=== PATIENT | male | born 2000 | race Caucasian/White ===

== ENCOUNTER 2020-07-01 09:42 | Emergency (ER) | payer OTHER ==
[~2020-07-01 09:42] MED LIST: BENTYL10 MG PO; IBUPROFEN800 MG PO; MEDROL 4MG DOSEP4 MG PO; ONDANSETRON ODT4 MG PO; PEPCID AC20 MG PO; PROAIR HFA8.5 GM INH; ZITHROMAX500 MG PO; ZOFRAN4 MG PO; ZOFRAN8 MG PO
[2020-07-01] MEDS ORDERED: OMEPRAZOLE40 MG PO (10:27)
[2020-07-01] MEDS ORDERED: ONDANSETRON ODT4 MG PO (10:27)
== END 2020-07-01 10:33 | disposition home or self-care (01) ==
LOC: FER 09:42
DX: K29.00 Acute gastritis without bleeding (principal); F17.200 Nicotine dependence, unspecified, uncomplicated; Z88.0 Allergy status to penicillin; Z87.19 Personal history of other diseases of the digestive system
CPT/HCPCS: 93005

== ENCOUNTER 2020-07-03 12:16 | Emergency (ER) | payer OTHER ==
[~2020-07-03 12:16] MED LIST changes: +OMEPRAZOLE40 MG PO
[2020-07-03 13:00] LABS: BASOPHIL 0.9 % (0-2); EOSINOPHIL 1.1 % (0-5); HCT 41.9 % (42.0-52.0); HGB 14.9 g/dl (13.2-18.0); LYMPHOCYTE 27.3 % (15-48); MCH 31.8 pg (25.0-31.0); MCHC 35.6 g/dL (32.0-36.0); MCV 89.3 fL (78.0-100.0); MONOCYTE 11.7 % (0-12); MPV 10.1 fL (6.0-9.5); NEUTROPHIL 58.8 % (41-80); NRBC 0; PLT 225 K/uL (150-400); RBC 4.69 M/uL (4.70-6.00); WBC 5.3 K/uL (4.0-10.5)
[2020-07-03 13:14] LABS: ALBUMIN 4.1 g/dL (3.4-5.0); BILIRUBIN - TOTAL 0.9 mg/dL (0.2-1.0); BUN/CREAT RATIO (CALC) 14.7 RATIO; CREATININE 0.95 mg/dL (0.67-1.17); GLOBULIN (CALCULATION) 2.8 g/dL; POTASSIUM 4.2 mmol/L (3.5-5.1); TOTAL PROTEIN 6.9 g/dL (6.4-8.2)
[2020-07-03] MEDS ORDERED: PEPCID AC20 MG PO (13:51)
[2020-07-03] MEDS ORDERED: CARAFATE1 GM PO (13:51)
== END 2020-07-03 14:02 | disposition home or self-care (01) ==
LOC: FER 12:16
PROVIDERS: Emergency Medicine
DX: K21.9 Gastro-esophageal reflux disease without esophagitis (principal); R11.0 Nausea; I49.8 Other specified cardiac arrhythmias; F17.200 Nicotine dependence, unspecified, uncomplicated; Z88.0 Allergy status to penicillin; Z79.899 Other long term (current) drug therapy
CPT/HCPCS: 36415; 71045; 80053; 83690; 84484; 85025; 87339; J2405

== ENCOUNTER 2020-08-30 00:32 | Emergency (ER) | payer OTHER ==
[~2020-08-30 00:32] MED LIST changes: +CARAFATE1 GM PO
[2020-08-30 01:16] LABS: BASOPHIL 0.4 % (0-2); EOSINOPHIL 0.2 % (0-5); HCT 43.9 % (42.0-52.0); HGB 16.4 g/dl (13.2-18.0); LYMPHOCYTE 13.2 % (15-48); MCH 33.7 pg (25.0-31.0); MCHC 37.4 g/dL (32.0-36.0); MCV 90.1 fL (78.0-100.0); MONOCYTE 6.8 % (0-12); MPV 10.1 fL (6.0-9.5); NEUTROPHIL 79.1 % (41-80); NRBC 0; PLT 241 K/uL (150-400); RBC 4.87 M/uL (4.70-6.00); RDW 12.1 % (11.5-14.0); WBC 15.7 K/uL (4.0-10.5)
[2020-08-30 01:52] LABS: BILIRUBIN - TOTAL 2.2 mg/dL (0.2-1.0); BUN/CREAT RATIO (CALC) 23.2 RATIO; CREATININE 0.95 mg/dL (0.67-1.17); GLOBULIN (CALCULATION) 3.3 g/dL; POTASSIUM 3.4 mmol/L (3.5-5.1); TOTAL PROTEIN 8.3 g/dL (6.4-8.2)
[2020-08-30] MEDS ORDERED: PROZAC20 MG PO (04:06)
[2020-08-30] MEDS ORDERED: ATIVAN0.5 MG PO (04:06)
== END 2020-08-30 04:40 | disposition home or self-care (01) ==
LOC: FER 00:32
PROVIDERS: Emergency Medicine Emergency Medical Services
DX: F41.9 Anxiety disorder, unspecified (principal); R07.89 Other chest pain; F17.200 Nicotine dependence, unspecified, uncomplicated; Z88.0 Allergy status to penicillin
CPT/HCPCS: 36415; 71045; 80053; 83690; 84443; 84484; 85025; 85379; 93005; J1885; J2060; J2270; J2405; J2930; J7030

== ENCOUNTER 2020-10-11 09:55 | Emergency (ER) | payer OTHER ==
[~2020-10-11 09:55] MED LIST changes: +ATIVAN0.5 MG PO; +PROZAC20 MG PO
[2020-10-11] MEDS ORDERED: PERCOCET 7.5/321 TAB PO (10:24)
== END 2020-10-11 10:50 | disposition home or self-care (01) ==
LOC: FER 09:55
DX: G89.18 Other acute postprocedural pain (principal); M25.531 Pain in right wrist; M79.641 Pain in right hand; F17.210 Nicotine dependence, cigarettes, uncomplicated; Z88.0 Allergy status to penicillin
CPT/HCPCS: 96372; 99283; J1170; J2550

== ENCOUNTER 2021-01-07 22:53 | Emergency (ER) | payer OTHER ==
[~2021-01-07 22:53] MED LIST changes: +PERCOCET 7.5/321 TAB PO
[2021-01-08 00:18] LABS: BASOPHIL 0.8 % (0-2); EOSINOPHIL 0.3 % (0-5); HCT 44.6 % (42.0-52.0); MCH 33.4 pg (25.0-31.0); MCHC 35.9 g/dL (32.0-36.0); MCV 93.1 fL (78.0-100.0); MONOCYTE 8.8 % (0-12); MPV 9.9 fL (6.0-9.5); NEUTROPHIL 65.8 % (41-80); NRBC 0; PLT 221 K/uL (150-400); RBC 4.79 M/uL (4.70-6.00); RDW 11.7 % (11.5-14.0); WBC 6.3 K/uL (4.0-10.5)
[2021-01-08 00:35] LABS: ALBUMIN 4.6 g/dL (3.4-5.0); BILIRUBIN - TOTAL 1.3 mg/dL (0.2-1.0); GLOBULIN (CALCULATION) 2.8 g/dL; TOTAL PROTEIN 7.4 g/dL (6.4-8.2)
[2021-01-08 00:43] LABS: PRO-BNP 20 pg/mL (<125)
[2021-01-08 01:16] LABS: FT4 (FREE T4) 1.2 ng/dL (0.76-1.46)
[2021-01-08] MEDS ORDERED: PROTONIX 40MG T40 MG PO (01:55)
[2021-01-08] MEDS ORDERED: CARAFATE1 GM PO (01:55)
[2021-01-08] MEDS ORDERED: ATARAX25 MG PO (01:55)
== END 2021-01-08 02:26 | disposition home or self-care (01) ==
LOC: FER 22:53
PROVIDERS: Emergency Medicine Emergency Medical Services
DX: K21.9 Gastro-esophageal reflux disease without esophagitis (principal); R07.89 Other chest pain; Z88.0 Allergy status to penicillin
CPT/HCPCS: 36415; 71046; 80053; 83690; 83880; 84439; 84443; 84484; 85025; 87339; 93005

== ENCOUNTER 2021-06-07 02:30 | Emergency (ER) | payer OTHER ==
[~2021-06-07 02:30] MED LIST changes: +ATARAX25 MG PO; +PROTONIX 40MG T40 MG PO
[2021-06-07 03:30] LABS: HCT 45.8 % (42.0-52.0); HGB 17.1 g/dl (13.2-18.0); MCH 34.4 pg (25.0-31.0); MCHC 37.3 g/dL (32.0-36.0); MCV 92.2 fL (78.0-100.0); MPV 9.6 fL (6.0-9.5); RBC 4.97 M/uL (4.70-6.00); RDW 11.6 % (11.5-14.0); WBC 13.8 K/uL (4.0-10.5)
[2021-06-07 03:36] LABS: BUN/CREAT RATIO (CALC) 21.4 RATIO; CREATININE 1.03 mg/dL (0.67-1.17)
[2021-06-07 04:02] LABS: CORONAVIRUS 2019 SARS-COV-2 NEGATIVE (NEGATIVE); INFLUENZA A NAA NEGATIVE (NEGATIVE)
[2021-06-07] MEDS ORDERED: ONDANSETRON ODT4 MG PO (05:03)
== END 2021-06-07 05:29 | disposition home or self-care (01) ==
LOC: FER 02:30
PROVIDERS: Emergency Medicine
DX: J06.9 Acute upper respiratory infection, unspecified (principal); B34.9 Viral infection, unspecified; F17.200 Nicotine dependence, unspecified, uncomplicated; Z20.822 Contact with and (suspected) exposure to COVID-19; Z88.0 Allergy status to penicillin
CPT/HCPCS: 36415; 71045; 80048; J1885; J2405; J7030; U0002

== ENCOUNTER 2021-06-09 16:52 | Emergency (ER) | payer OTHER ==
[2021-06-09 17:46] LABS: BASOPHIL 0.7 % (0-2); HGB 16.2 g/dl (13.2-18.0); LYMPHOCYTE 25.3 % (15-48); MCH 33.7 pg (25.0-31.0); MCV 93.6 fL (78.0-100.0); MONOCYTE 11.4 % (0-12); MPV 9.8 fL (6.0-9.5); NEUTROPHIL 60.3 % (41-80); NRBC 0; PLT 191 K/uL (150-400); RBC 4.81 M/uL (4.70-6.00); RDW 11.8 % (11.5-14.0); WBC 5.9 K/uL (4.0-10.5)
[2021-06-09 18:03] LABS: ALBUMIN 4.4 g/dL (3.4-5.0); BILIRUBIN - TOTAL 0.5 mg/dL (0.2-1.0); BUN/CREAT RATIO (CALC) 12.6 RATIO; CREATININE 0.95 mg/dL (0.67-1.17); GLOBULIN (CALCULATION) 2.8 g/dL; POTASSIUM 3.9 mmol/L (3.5-5.1); TOTAL PROTEIN 7.2 g/dL (6.4-8.2)
[2021-06-09 18:09] LABS: BILIRUBIN NEGATIVE (NEGATIVE); BLOOD NEGATIVE Ery/uL (NEGATIVE); CLARITY CLEAR (CLEAR); COLOR YELLOW (YELLOW); GLUCOSE (U) NORMAL (NORMAL); LEUKOCYTES NEGATIVE Leu/uL (NEGATIVE); NITRITE NEGATIVE (NEGATIVE); PROTEIN NEGATIVE (NEGATIVE); UROBILINOGEN 0.2 mg/dL (0.2-1.0); pH 7.5 (5.0-9.0)
[2021-06-09] MEDS ORDERED: BENTYL10 MG PO (19:11)
== END 2021-06-09 19:49 | disposition home or self-care (01) ==
LOC: FER 16:52
PROVIDERS: Nurse Practitioner Family
DX: K59.00 Constipation, unspecified (principal); Z88.0 Allergy status to penicillin
CPT/HCPCS: 36415; 80053; 81003; 85025; J2405; J7030; Q9967

== ENCOUNTER 2021-07-16 13:57 | Emergency (ER) | payer OTHER ==
[2021-07-16 15:40] LABS: ALBUMIN 4.6 g/dL (3.4-5.0); ALKALINE PHOSHATASE 76 U/L (46-116); ALT 17 U/L (16-63); AST 17 U/L (15-37); BUN 16 mg/dL (7-18); BUN/CREAT RATIO (CALC) 17.6 RATIO; CHLORIDE 103 mmol/L (98-107); CO2 (BICARBONATE) 23 mmol/L (21-32); CREATININE 0.91 mg/dL (0.67-1.17); GLOBULIN (CALCULATION) 3.2 g/dL; GLUCOSE 98 mg/dL (74-106); POTASSIUM 3.8 mmol/L (3.5-5.1); TOTAL PROTEIN 7.8 g/dL (6.4-8.2)
[2021-07-16 15:42] LABS: C-REACTIVE PROTEIN < 0.20 mg/dL (<=0.90)
[2021-07-16 16:38] LABS: BILIRUBIN NEGATIVE (NEGATIVE); BLOOD NEGATIVE Ery/uL (NEGATIVE); CLARITY CLEAR (CLEAR); COLOR YELLOW (YELLOW); GLUCOSE (U) NORMAL (NORMAL); LEUKOCYTES NEGATIVE Leu/uL (NEGATIVE); NITRITE NEGATIVE (NEGATIVE); PROTEIN NEGATIVE (NEGATIVE); UROBILINOGEN 0.2 mg/dL (0.2-1.0)
[2021-07-16 16:47] LABS: AMPHETAMINES NEGATIVE (NEGATIVE); BARBITURATES NEGATIVE (NEGATIVE); ECSTASY (MDMA) NEGATIVE (NEGATIVE); MARIJUANA (THC) POSITIVE (NEGATIVE); METHADONE NEGATIVE (NEGATIVE); OPIATES NEGATIVE (NEGATIVE); OXYCODONE NEGATIVE (NEGATIVE)
[2021-07-16] MEDS ORDERED: HYDROXYZINE HCL25 MG PO (17:00)
== END 2021-07-16 17:19 | disposition home or self-care (01) ==
LOC: FER 13:57
PROVIDERS: Emergency Medicine
DX: F45.8 Other somatoform disorders (principal); Z87.891 Personal history of nicotine dependence; Z28.310 Unvaccinated for COVID-19
CPT/HCPCS: 36415; 36600; 80053; 80305; 81003; 82803; 86140; 93005; 99284; G0480

== ENCOUNTER 2021-07-28 00:27 | Emergency (ER) | payer OTHER ==
[~2021-07-28 00:27] MED LIST changes: +HYDROXYZINE HCL25 MG PO
== END 2021-07-28 01:36 | disposition home or self-care (01) ==
LOC: FER 00:27
DX: R11.2 Nausea with vomiting, unspecified (principal); F17.200 Nicotine dependence, unspecified, uncomplicated; Z88.0 Allergy status to penicillin; Z28.310 Unvaccinated for COVID-19
CPT/HCPCS: 99283